=== PATIENT | female | born 1980 | race African-American/Black ===

== ENCOUNTER 2020-08-03 17:47 | Emergency (ER) | payer BC ==
[~2020-08-03] VITALS: Ht 180.3 cm; Wt 109.8 kg
[~2020-08-03 17:47] MED LIST: PRENATAL PO
[2020-08-03 19:16] LABS: HEMATOCRIT 36.7 % (37.0-47.0); HEMOGLOBIN 11.4 gm/dL (12.0-15.0); MCH 21.6 pg (26.0-34.0); MCV 69.8 fL (80.0-100.0); PLATELET COUNT 261 thou/uL (150-400); RBC 5.26 mil/uL (4.20-5.00); RDW 15.2 % (10.5-14.5); WBC 6.1 thou/uL (4.0-11.0)
[2020-08-03 19:23] LABS: ANION GAP 8 mmol/L (7-16); BUN 14 mg/dL (7-18); CALCIUM 9.4 mg/dL (8.5-10.1); CHLORIDE 103 mmol/L (98-107); CO2 26 mmol/L (21-32); CREATININE 0.8 mg/dL (0.6-1.0); GLUCOSE 93 mg/dL (74-106); POTASSIUM 4.3 mmol/L (3.5-5.1); SODIUM 137 mmol/L (136-145)
[2020-08-03 19:33] LABS: ALBUMIN 3.1 g/dL (3.4-5.0); APTT 26.1 Seconds (24.5-32.8); D-DIMER 0.7 ug/mLFEU (0.19-0.50); MAGNESIUM 1.9 mg/dL (1.8-2.4); PROTIME 10.1 Seconds (9.3-11.4); SGOT 25 U/L (15-37); SGPT 30 U/L (30-65); TOTAL BILIRUBIN 0.2 mg/dL (0.2-1.0); TOTAL PROTEIN 7.4 g/dL (6.4-8.2); TROPONIN-I <0.06 ng/mL (<0.06)
[2020-08-03 20:19] LABS: ABSOLUTE NEUTROPHILS 3.4 thou/uL (1.4-8.2); ANISOCYTOSIS 1+; HYPOCHROMASIA 1+; MICROCYTES 1+
[2020-08-03 20:20] LABS: POLYCHROMASIA OCCASIONAL
[2020-08-03] MEDS ORDERED: ATENOLOL 25 MG25 M1 PO (22:12)
[2020-08-03 22:28] VITALS: BP 145/70
--- NOTE | 2020-08-11 07:54 | EKG ---
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
== END 2020-08-03 22:23 | disposition home or self-care (01) ==
LOC: ER 17:47
PROVIDERS: Emergency Medicine
DX: E05.90 Thyrotoxicosis, unspecified without thyrotoxic crisis or storm (principal); M79.18 Myalgia, other site; R06.02 Shortness of breath; M79.604 Pain in right leg; M79.605 Pain in left leg; R19.7 Diarrhea, unspecified

== ENCOUNTER → 2020-09-04 | Outpatient (CLI) | payer OTHER ==
[~2020-09-04] MED LIST changes: +ATENOLOL 25 MG25 M1 PO
== END ==
LOC: ULTRA 10:57
PROVIDERS: ATTEND Internal Medicine
DX: E05.90 Thyrotoxicosis, unspecified without thyrotoxic crisis or storm (principal)

== ENCOUNTER → 2020-09-11 | Outpatient (CLI) | payer OTHER | LOC: NUC 07:08 | PROVIDERS: ATTEND Internal Medicine | DX: E05.90 Thyrotoxicosis, unspecified without thyrotoxic crisis or storm (principal) ==

== ENCOUNTER 2020-10-03 09:07 | Emergency (ER) | payer OTHER ==
[~2020-10-03] VITALS: Ht 180.3 cm; Wt 102.5 kg
[2020-10-03] MEDS ORDERED: ATENOLOL 25 MG25 M1 PO (09:11)
[2020-10-03] MEDS ORDERED: TAPAZOLE10 MG PO (09:11)
[2020-10-03 10:05] LABS: URINE BILIRUBIN NEGATIVE (Negative); URINE BLOOD TRACE (Negative); URINE COLOR YELLOW; URINE GLUCOSE-RANDOM* NEGATIVE (Negative); URINE KETONES NEGATIVE (Negative); URINE NITRITE-REFLEX NEGATIVE (Negative); URINE PROTEIN (DIPSTICK) NEGATIVE (Negative); URINE SPECIFIC GRAVITY >= 1.030 (1.005-1.035); URINE UROBILINOGEN 0.2 E.U./dl (0.2-1.0)
[2020-10-03 10:06] LABS: URINE CLARITY HAZY; URINE LEUKOCYTES-REFLEX 2+ (Negative)
[2020-10-03 10:11] LABS: ABSOLUTE NEUTROPHILS 3.4 thou/uL (1.4-8.2); BASOPHILS 0.5 % (0.0-2.0); EOSINOPHILS 2.1 % (0.0-3.0); HEMATOCRIT 37.3 % (37.0-47.0); HEMOGLOBIN 11.6 gm/dL (12.0-15.0); LYMPHOCYTES 23.9 % (24.0-44.0); MCH 20.7 pg (26.0-34.0); MCV 66.6 fL (80.0-100.0); PLATELET COUNT 260 thou/uL (150-400); POLYS 65.5 % (36.0-66.0); RDW 14.5 % (10.5-14.5); WBC 5.3 thou/uL (4.0-11.0)
[2020-10-03 10:15] LABS: ANION GAP 9 mmol/L (7-16); BUN 7 mg/dL (7-18); CALCIUM 9.5 mg/dL (8.5-10.1); CHLORIDE 103 mmol/L (98-107); CO2 26 mmol/L (21-32); CREATININE 0.7 mg/dL (0.6-1.0); GLUCOSE 109 mg/dL (74-106); POTASSIUM 3.6 mmol/L (3.5-5.1); SODIUM 138 mmol/L (136-145)
[2020-10-03 10:25] LABS: ALBUMIN 3.4 g/dL (3.4-5.0); SGOT 21 U/L (15-37); SGPT 48 U/L (14-59); TOTAL BILIRUBIN 0.4 mg/dL (0.2-1.0); TOTAL PROTEIN 7.3 g/dL (6.4-8.2); TROPONIN-I <0.06 ng/mL (<0.06)
[2020-10-03 10:33] LABS: CASTS None Seen /LPF (None Seen); MUCUS 4-6 Moderate strn/LPF (None Seen); SQUAMOUS >10 Many /LPF (0-3)
[2020-10-03 10:34] LABS: CRYSTALS None Seen /LPF (None Seen); URINE RBC 0-2 Rare /HPF (0-2); URINE WBC-REFLEX 6-15 Few /HPF (0-5)
[2020-10-03] MEDS ORDERED: KEFLEX500 M1 PO (10:40)
[2020-10-03 10:41] VITALS: BP 117/72
[2020-10-03 11:10] LABS: ANISOCYTOSIS SLIGHT; MICROCYTES 2+; POIKILOCYTOSIS SLIGHT
--- NOTE | 2020-10-03 15:24 | EKG ---
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1980 Requested By: Myles Lowery Order Number: [id number] MD: Ankush Simeon Measurements Intervals [place] Rate: 91 P: 58 VT: 168 QRS: 63 QRSD: 82 T: 19 QT: 358 QTc: 441 Interpretive Statements Sinus rhythm Probable left atrial enlargement Compared to ECG 08/03/2020 18:05:44 Sinus tachycardia no longer present Electronically Signed On 10-03-2020 15:24:36 [employer] by Ankush Simeon [email or web address] <ELECTRONICALLY SIGNED> By: Ankush Simeon MD, [facility] 10/03/20 1524 1 1 Ankush Simeon MD, FACC /EPI
== END 2020-10-03 10:40 | disposition home or self-care (01) ==
LOC: ER 09:07
PROVIDERS: Emergency Medicine
DX: R42 Dizziness and giddiness (principal); R53.1 Weakness; M25.512 Pain in left shoulder; Z79.899 Other long term (current) drug therapy

== ENCOUNTER 2021-03-20 11:05 | Emergency (ER) | payer BC ==
[~2021-03-20] VITALS: Ht 180.3 cm; Wt 106.1 kg
[~2021-03-20 11:05] MED LIST changes: +KEFLEX500 M1 PO; +TAPAZOLE10 MG PO
[2021-03-20 11:43] LABS: ABSOLUTE NEUTROPHILS 3.9 thou/uL (1.4-8.2); BASOPHILS 0.4 % (0.0-2.0); EOSINOPHILS 0.6 % (0.0-3.0); HEMATOCRIT 35.7 % (37.0-47.0); HEMOGLOBIN 11.3 gm/dL (12.0-15.0); LYMPHOCYTES 25.7 % (24.0-44.0); MCH 23.3 pg (26.0-34.0); MCHC 31.7 g/dL (28.0-37.0); MCV 73.6 fL (80.0-100.0); MONOCYTES 6.5 % (1.0-8.0); PLATELET COUNT 247 thou/uL (150-400); POLYS 66.8 % (36.0-66.0); RBC 4.84 mil/uL (4.20-5.00); RDW 13.4 % (10.5-14.5); WBC 5.8 thou/uL (4.0-11.0)
[2021-03-20 11:57] LABS: ANION GAP 7 mmol/L (7-16); BUN 12 mg/dL (7-18); CALCIUM 8.9 mg/dL (8.5-10.1); CHLORIDE 103 mmol/L (98-107); CO2 27 mmol/L (21-32); GLUCOSE 131 mg/dL (74-106); POTASSIUM 3.6 mmol/L (3.5-5.1); SODIUM 137 mmol/L (136-145)
[2021-03-20 12:02] LABS: ALBUMIN 3.4 g/dL (3.4-5.0); SGOT 16 U/L (15-37); SGPT 21 U/L (14-59); TOTAL BILIRUBIN 0.3 mg/dL (0.2-1.0); TOTAL PROTEIN 7.6 g/dL (6.4-8.2); TROPONIN-I <0.06 ng/mL (<0.06)
[2021-03-20 12:31] VITALS: BP 126/77
--- NOTE | 2021-03-21 08:45 | EKG ---
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
== END 2021-03-20 13:44 | disposition home or self-care (01) ==
LOC: ER 11:05
PROVIDERS: Emergency Medicine
DX: R94.6 Abnormal results of thyroid function studies (principal); R00.2 Palpitations; Z79.899 Other long term (current) drug therapy

== ENCOUNTER → 2021-04-14 | Outpatient (CLI) | payer OTHER | LOC: CAT 11:02 | PROVIDERS: ATTEND Internal Medicine | DX: Z13.6 Encounter for screening for cardiovascular disorders (principal); E78.00 Pure hypercholesterolemia, unspecified; I25.10 Atherosclerotic heart disease of native coronary artery without angina pectoris ==

== ENCOUNTER 2021-04-30 07:11 | Emergency (ER) | payer OTHER ==
[~2021-04-30] VITALS: Ht 180.3 cm; Wt 103.4 kg
[2021-04-30 08:29] LABS: ABSOLUTE NEUTROPHILS 3.5 thou/uL (1.4-8.2); BASOPHILS 0.4 % (0.0-2.0); EOSINOPHILS 0.9 % (0.0-3.0); HEMATOCRIT 36.4 % (37.0-47.0); HEMOGLOBIN 11.5 gm/dL (12.0-15.0); LYMPHOCYTES 29.3 % (24.0-44.0); MCH 22.6 pg (26.0-34.0); MCHC 31.5 g/dL (28.0-37.0); MCV 71.8 fL (80.0-100.0); MONOCYTES 7.6 % (1.0-8.0); PLATELET COUNT 248 thou/uL (150-400); POLYS 61.8 % (36.0-66.0); RBC 5.08 mil/uL (4.20-5.00); RDW 14.4 % (10.5-14.5); WBC 5.7 thou/uL (4.0-11.0)
[2021-04-30 08:58] LABS: CALCIUM 8.9 mg/dL (8.5-10.1); CREATININE 0.8 mg/dL (0.6-1.0)
[2021-04-30 09:00] LABS: URINE BILIRUBIN NEGATIVE (Negative); URINE BLOOD NEGATIVE (Negative); URINE CLARITY CLEAR; URINE COLOR YELLOW; URINE GLUCOSE-RANDOM* NEGATIVE (Negative); URINE KETONES TRACE (Negative); URINE LEUKOCYTES-REFLEX TRACE (Negative); URINE NITRITE-REFLEX NEGATIVE (Negative); URINE PROTEIN (DIPSTICK) NEGATIVE (Negative); URINE UROBILINOGEN 0.2 E.U./dl (0.2-1.0)
[2021-04-30 09:31] VITALS: BP 127/84
[2021-04-30 09:37] LABS: ANISOCYTOSIS 1+; MICROCYTES 1+; OVALOCYTES 1+
[2021-04-30 09:38] LABS: HYPOCHROMASIA 2+
== END 2021-04-30 09:31 | disposition home or self-care (01) ==
LOC: ER 07:11
PROVIDERS: Student in an Organized Health Care Education/Training Program
DX: F41.9 Anxiety disorder, unspecified (principal); I10 Essential (primary) hypertension; Z79.899 Other long term (current) drug therapy

== ENCOUNTER 2021-05-03 04:34 | Emergency (ER) | payer OTHER ==
[~2021-05-03] VITALS: Ht 180.3 cm; Wt 101.6 kg
[2021-05-03 07:22] VITALS: BP 131/77
--- NOTE | 2021-05-03 11:52 | EKG ---
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
== END 2021-05-03 07:24 | disposition home or self-care (01) ==
LOC: ER 04:34
DX: R06.00 Dyspnea, unspecified (principal); R60.0 Localized edema; R07.89 Other chest pain; M79.604 Pain in right leg; Z79.899 Other long term (current) drug therapy; Z88.1 Allergy status to other antibiotic agents

== ENCOUNTER → 2021-05-05 | Emergency (ER) | payer OTHER ==
[2021-05-05 20:19] VITALS: BP 145/96
== END ==
LOC: ER 20:08
DX: R41.0 Disorientation, unspecified (principal); R73.9 Hyperglycemia, unspecified; Z53.21 Procedure and treatment not carried out due to patient leaving prior to being seen by health care provider; Z88.8 Allergy status to other drugs, medicaments and biological substances